=== PATIENT | female | born 1950 | race Caucasian/White ===

== ENCOUNTER → 2021-01-02 14:59 | Outpatient (BNVA) | payer MEDICARE, OTHER, SELFPAY | PROVIDERS: Family Provider Internal Medicine; PCP Internal Medicine; Visit Provider Registered Nurse Neonatal Intensive Care | DX: S52.512A Displaced fracture of left radial styloid process, initial encounter for closed fracture (principal); W19.XXXA Unspecified fall, initial encounter | CPT/HCPCS: 73110 ==

== ENCOUNTER 2021-01-04 15:31 | Outpatient (CLI) | payer MEDICARE, OTHER, SELFPAY | END 2021-01-04 15:32 | disposition home or self-care (01) | LOC: SPT 15:32 | PROVIDERS: Family Provider Internal Medicine; PCP Internal Medicine; Visit Provider Orthopaedic Surgery | DX: Z46.89 Encounter for fitting and adjustment of other specified devices (principal); S52.592D Other fractures of lower end of left radius, subsequent encounter for closed fracture with routine healing; X58.XXXD Exposure to other specified factors, subsequent encounter | CPT/HCPCS: 97760; L3982 ==

== ENCOUNTER → 2021-02-15 13:06 | Outpatient (BNVA) | payer MEDICARE, OTHER, SELFPAY | PROVIDERS: Family Provider Internal Medicine; PCP Internal Medicine; Visit Provider Orthopaedic Surgery | DX: S52.502A Unspecified fracture of the lower end of left radius, initial encounter for closed fracture (principal); X58.XXXA Exposure to other specified factors, initial encounter | CPT/HCPCS: 73110 ==

== ENCOUNTER → 2021-04-04 14:38 | Outpatient (BNVA) | payer MEDICARE, OTHER, SELFPAY | PROVIDERS: Family Provider Internal Medicine; PCP Internal Medicine; Referring Provider Pediatrics; Visit Provider Podiatrist Foot & Ankle Surgery | DX: M79.671 Pain in right foot (principal); M79.672 Pain in left foot; E11.42 Type 2 diabetes mellitus with diabetic polyneuropathy; L60.3 Nail dystrophy; M20.41 Other hammer toe(s) (acquired), right foot; M20.42 Other hammer toe(s) (acquired), left foot; M21.611 Bunion of right foot; M21.612 Bunion of left foot; M21.41 Flat foot [pes planus] (acquired), right foot; M21.42 Flat foot [pes planus] (acquired), left foot; M72.2 Plantar fascial fibromatosis; Z46.89 Encounter for fitting and adjustment of other specified devices; M20.40 Other hammer toe(s) (acquired), unspecified foot; M21.619 Bunion of unspecified foot; E11.9 Type 2 diabetes mellitus without complications | CPT/HCPCS: 73630; 97760; L4397 ==

== ENCOUNTER 2021-04-04 15:52 | Outpatient (CLI) | payer MEDICARE, OTHER, SELFPAY | END 2021-04-04 15:53 | disposition home or self-care (01) | LOC: SPT 15:53 | PROVIDERS: Family Provider Internal Medicine; PCP Internal Medicine; Visit Provider Podiatrist Foot & Ankle Surgery | DX: Z46.89 Encounter for fitting and adjustment of other specified devices (principal); L60.3 Nail dystrophy; M20.40 Other hammer toe(s) (acquired), unspecified foot; M21.619 Bunion of unspecified foot; M21.41 Flat foot [pes planus] (acquired), right foot; M21.42 Flat foot [pes planus] (acquired), left foot; M72.2 Plantar fascial fibromatosis; E11.9 Type 2 diabetes mellitus without complications | CPT/HCPCS: 97760; L4397 ==

== ENCOUNTER → 2021-12-05 10:32 | Outpatient (BNVA) | payer MEDICARE, OTHER, SELFPAY | PROVIDERS: Family Provider Internal Medicine; PCP Internal Medicine; Visit Provider Podiatrist Foot & Ankle Surgery | DX: L60.3 Nail dystrophy; M20.41 Other hammer toe(s) (acquired), right foot; M20.42 Other hammer toe(s) (acquired), left foot; M21.611 Bunion of right foot; M21.612 Bunion of left foot; M21.41 Flat foot [pes planus] (acquired), right foot; M21.42 Flat foot [pes planus] (acquired), left foot; M72.2 Plantar fascial fibromatosis; E11.42 Type 2 diabetes mellitus with diabetic polyneuropathy; Z79.84 Long term (current) use of oral hypoglycemic drugs | CPT/HCPCS: 99214 ==

== ENCOUNTER → 2022-03-27 09:53 | Outpatient (BNVA) | payer MEDICARE, OTHER, SELFPAY | PROVIDERS: Family Provider Internal Medicine; Visit Provider Podiatrist Foot & Ankle Surgery | DX: E11.8 Type 2 diabetes mellitus with unspecified complications (principal); E11.42 Type 2 diabetes mellitus with diabetic polyneuropathy; L60.3 Nail dystrophy; M21.41 Flat foot [pes planus] (acquired), right foot; M21.42 Flat foot [pes planus] (acquired), left foot; Z79.84 Long term (current) use of oral hypoglycemic drugs; M20.41 Other hammer toe(s) (acquired), right foot; M20.42 Other hammer toe(s) (acquired), left foot; M21.611 Bunion of right foot; M21.612 Bunion of left foot | CPT/HCPCS: 99213 ==

== ENCOUNTER → 2022-07-17 10:32 | Outpatient (BNVA) | payer MEDICARE, SELFPAY | PROVIDERS: Family Provider Internal Medicine; Visit Provider Podiatrist Foot & Ankle Surgery | DX: I73.9 Peripheral vascular disease, unspecified (principal); E11.42 Type 2 diabetes mellitus with diabetic polyneuropathy; Z86.718 Personal history of other venous thrombosis and embolism; L60.3 Nail dystrophy; M20.41 Other hammer toe(s) (acquired), right foot; M20.42 Other hammer toe(s) (acquired), left foot; M21.41 Flat foot [pes planus] (acquired), right foot; M21.42 Flat foot [pes planus] (acquired), left foot; M21.612 Bunion of left foot; M21.611 Bunion of right foot; Z79.84 Long term (current) use of oral hypoglycemic drugs | CPT/HCPCS: 11721; 99213 ==

== ENCOUNTER 2022-07-20 12:36 | Outpatient (CLI) | payer MEDICARE, SELFPAY ==
--- NOTE | 2022-07-20 13:00 | USCV_ITS ---
Mary White Age: 72 Gender: F : 1950 Exam Date: 07/20/2022 13:24 Ordering Phys: Carter Balderrama DPM Technologist: YAA Exam Location: [facility] – [place] Indication: Left calf pain HISTORY: Lower extremity pain. PROCEDURES: The venous duplex Doppler examination of both lower extremities was performed in the standard fashion. The following venous structures were evaluated: common femoral vein, profunda vein, proximal portion of the greater saphenous vein, superficial femoral vein, and the popliteal vein. In addition, the posterior tibial and peroneal trunk were evaluated. Serial compression, augmentation maneuvers, and spectral Doppler flow evaluation were performed. FINDINGS: No evidence of DVT seen in any vessel visualized at this time. CONCLUSIONS No evidence of right lower extremity DVT. No evidence of left lower extremity DVT. Adolfo Harrell MD (Electronically Signed) Final Date: 20 July 2022 18:14 S
== END 2022-07-20 12:37 | disposition home or self-care (01) ==
LOC: RAD 12:52
PROVIDERS: PCP Pediatrics; Visit Provider Podiatrist Foot & Ankle Surgery
DX: M79.662 Pain in left lower leg (principal)
CPT/HCPCS: 93970

== ENCOUNTER → 2022-07-25 10:50 | Outpatient (BNVA) | payer MEDICARE, SELFPAY | PROVIDERS: PCP Pediatrics; Visit Provider Orthopaedic Surgery | DX: M25.511 Pain in right shoulder (principal) | CPT/HCPCS: 73030; 99213 ==

== ENCOUNTER 2022-08-14 14:42 | Outpatient (CLI) | payer MEDICARE, SELFPAY ==
--- NOTE | 2022-08-14 15:15 | MR_ITS ---
WS: [id number] EXAMINATION: MR shoulder RT wo con* [id number] ORDER DATE: 08/14/2022 3:13 PM COMPARISON: None. HISTORY: pain CONTRAST: None. TECHNIQUE: Axial T2 STAR, coronal proton density fat sat, sagittal T2 fat sat, sagittal proton densit y fat sat, axial proton density fat sat, coronal T2 fat sat, and coronal T1 performed. After contrast , axial T1 fat sat, coronal T1 fat sat, and sagittal T1 fat sat were performed. FINDINGS: Moderate degenerative arthritis AC joint with mild edema. Mild downsloping acromion with slight subac romial spurring. Trace subacromial fluid. Tendinopathy distal supraspinatus. Tendinopathy distal infr aspinatus. Tiny insertional tear at the distal supraspinatus. Chronic thinning of the distal supraspi natus. Teres minor is normal. Normal distal subscapularis. Normal biceps tendon in the bicipital groove. Deg enerative fraying of the glenoid labrum. Cystic degenerative changes at the greater tuberosity. Bicep s labral anchor appears intact. MR/MR shoulder RT wo con* [id number] IMPRESSION: 1. Moderate degenerative arthritis AC joint with mild downsloping acromion. Mi ld narrowing of the subacromial space. 2. Tendinopathy distal supraspinatus and infraspinatus. 3. Tiny insertional tear at the distal supraspinatus with chronic thinning. 4. Rotator cuff is otherwise intact. 5. Biceps tendon appears intact within the bicipital groove. 6. Cystic degenerative changes at the greater tuberosity.
== END 2022-08-14 14:43 | disposition home or self-care (01) ==
PROVIDERS: PCP Pediatrics; Visit Provider Orthopaedic Surgery
DX: M75.101 Unspecified rotator cuff tear or rupture of right shoulder, not specified as traumatic (principal); M19.011 Primary osteoarthritis, right shoulder
CPT/HCPCS: 73221

== ENCOUNTER → 2022-08-15 09:02 | Outpatient (BNVA) | payer MEDICARE, SELFPAY | PROVIDERS: PCP Pediatrics; Visit Provider Orthopaedic Surgery | DX: M75.121 Complete rotator cuff tear or rupture of right shoulder, not specified as traumatic (principal); M19.011 Primary osteoarthritis, right shoulder | CPT/HCPCS: 99213 ==

== ENCOUNTER → 2022-10-16 09:46 | Outpatient (BNVA) | payer MEDICARE, SELFPAY | PROVIDERS: PCP Pediatrics; Visit Provider Podiatrist Foot & Ankle Surgery | DX: E11.8 Type 2 diabetes mellitus with unspecified complications (principal); L60.3 Nail dystrophy; L84 Corns and callosities; E11.42 Type 2 diabetes mellitus with diabetic polyneuropathy; M21.41 Flat foot [pes planus] (acquired), right foot; M21.42 Flat foot [pes planus] (acquired), left foot; I73.9 Peripheral vascular disease, unspecified; Z86.718 Personal history of other venous thrombosis and embolism; M20.42 Other hammer toe(s) (acquired), left foot; M20.41 Other hammer toe(s) (acquired), right foot; M21.612 Bunion of left foot; M21.611 Bunion of right foot | CPT/HCPCS: 11056; 11721 ==

== ENCOUNTER → 2022-12-18 12:44 | Outpatient (BNVA) | payer MEDICARE, SELFPAY | PROVIDERS: PCP Pediatrics; Visit Provider Student in an Organized Health Care Education/Training Program | DX: M75.121 Complete rotator cuff tear or rupture of right shoulder, not specified as traumatic; M19.011 Primary osteoarthritis, right shoulder | CPT/HCPCS: 99213 ==

== ENCOUNTER → 2023-01-08 08:08 | Outpatient (BNVA) | payer MEDICARE, SELFPAY | PROVIDERS: PCP Pediatrics; Visit Provider Podiatrist Foot & Ankle Surgery | DX: E11.42 Type 2 diabetes mellitus with diabetic polyneuropathy (principal); L60.3 Nail dystrophy; I73.9 Peripheral vascular disease, unspecified; L84 Corns and callosities; M48.062 Spinal stenosis, lumbar region with neurogenic claudication; R07.81 Pleurodynia; M54.16 Radiculopathy, lumbar region; Z79.84 Long term (current) use of oral hypoglycemic drugs | CPT/HCPCS: 11056; 11721; 72100; 99204 ==

== ENCOUNTER 2023-02-05 09:57 | Outpatient (CLI) | payer MEDICARE, SELFPAY ==
--- NOTE | 2023-02-05 | MR_ITS ---
WS: [id number] MRI LUMBAR SPINE NONCONTRAST TECHNIQUE: Sagittal T1, T2 and STIR imaging. Axial T1 and T2 imaging. CLINICAL INFORMATION: back pain COMPARISON: MRI 2014 FINDINGS: Mild lumbar curve. No acute compression. Prior laminectomy defects L3 and L4. L1-L2: Shallow central disc protrusion. Mild central canal stenosis. Moderate facet arthropathy. Fora men are patent. Central canal stenosis has progressed at this level. L2-L3: Mild disc bulging with moderate facet arthropathy and narrowing of the subarticular recess belinda aterally. Slightly progressed moderate central canal stenosis. Mild LEFT and no significant RIGHT for aminal narrowing. L3-L4: Mild disc bulging with impingement on the LEFT subarticular recess and traversing LEFT L4 nerv e root. Advanced facet arthropathy. Mild LEFT and no significant RIGHT foraminal narrowing. L4-L5: Mild disc bulging with mild central canal stenosis and slight impingement traversing L5 nerve roots bilaterally. Moderate to advanced facet arthropathy. RIGHT foraminal protrusion impinges the ex iting RIGHT L4 nerve root with moderate RIGHT foraminal narrowing. L5-S1: RIGHT subarticular protrusion impinges the traversing RIGHT S1 nerve root in the subarticular recess. Moderate facet arthropathy. Mild RIGHT foraminal narrowing. LEFT foramen is patent. Visualized pelvic bony structures: Normal. Paravertebral soft tissues: Normal. Small RIGHT adrenal adenoma. IMPRESSION: 1. Mild progressed central canal stenosis L1-2 and L4-5. Impingement traversing L5 nerve roots at L4 -5. 2. Moderate progressed Central canal stenosis L2-3 3. Subarticular protrusion L3-4 impinges the traversing LEFT L4 nerve root in the subarticular reces s. 4. RIGHT foraminal protrusion L4-5 impinges the exiting RIGHT L4 nerve root. 5. RIGHT subarticular protrusion L5-S1 impinges the RIGHT S1 nerve root progressed compared to previ ous.
== END 2023-02-05 09:58 | disposition home or self-care (01) ==
PROVIDERS: PCP Pediatrics; Visit Provider Orthopaedic Surgery
DX: M51.16 Intervertebral disc disorders with radiculopathy, lumbar region (principal); M48.061 Spinal stenosis, lumbar region without neurogenic claudication
CPT/HCPCS: 72148

== ENCOUNTER → 2023-02-07 10:03 | Outpatient (BNVA) | payer MEDICARE, SELFPAY | PROVIDERS: PCP Pediatrics; Visit Provider Physician Assistant | DX: M48.062 Spinal stenosis, lumbar region with neurogenic claudication (principal) | CPT/HCPCS: 99213 ==

== ENCOUNTER → 2023-03-08 09:57 | Outpatient (BNVA) | payer MEDICARE, SELFPAY | PROVIDERS: PCP Pediatrics; Visit Provider Student in an Organized Health Care Education/Training Program | DX: M75.121 Complete rotator cuff tear or rupture of right shoulder, not specified as traumatic (principal); M19.011 Primary osteoarthritis, right shoulder; Z01.818 Encounter for other preprocedural examination; E11.42 Type 2 diabetes mellitus with diabetic polyneuropathy; Z79.84 Long term (current) use of oral hypoglycemic drugs | CPT/HCPCS: 99214 ==

== ENCOUNTER 2023-03-27 12:15 | Outpatient (CLI) | payer MEDICARE, SELFPAY ==
[2023-03-27 12:56] LABS: Basophils % 0.4 %; Eosinophils # 0.1 10^3/uL (0.0-0.8); Lymphocytes # 1.7 10^3/uL (0.8-4.8); Lymphocytes % 21.2 %; Mean Corpuscular Hemoglobin 29.6 pg (27-33); Mean Corpuscular Volume 92.4 fl (85-98); Mean Platelet Volume 10.1 fL (7.4-10.4); Monocytes # 0.6 10^3/uL (0.2-0.9); Monocytes % 8.2 %; Neutrophils # 5.38 10^3/uL (1.8-7.7); Neutrophils % 69.1 %; Nucleated Red Blood Cells % 0 %; Platelet Count 248 10^3/cmm (157-399); Red Blood Count 4.33 10^6/uL (3.85-5.65); White Blood Count 7.79 10^3/uL (3.29-11.43)
[2023-03-27 13:14] LABS: Alanine Aminotransferase 17 U/L (0-33); Albumin Level 3.9 g/dL (3.5-5.2); Alkaline Phosphatase 103 U/L (35-105); Aspartate Amino Transferase 16 U/L (0-32); Blood Urea Nitrogen 13 mg/dL (8-23); Calcium 9.5 mg/dL (8.5-10.5); Carbon Dioxide 29 mmol/L (22-29); Chloride 99 mmol/L (98-107); Glucose 163 mg/dL (65-115); Osmolality Calculated 288 mOsm/kg (285-295); Sodium 137 mmol/L (136-145); Total Bilirubin 0.3 mg/dL (0.15-1.2); Total Protein 6.9 g/dL (6.6-8.7)
[2023-03-27 13:25] LABS: Add Urine Microscopic? YES; Bilirubin Urine Neg (Negative); Blood Urine Neg (Negative); Glucose Urine UA Norm (Normal); Ketones Urine Negative (Negative); Leukocyte Esterase Urine Negative (Negative); Nitrate Urine Negative (Negative); Protein Urine Neg (Negative); RBC Urine 0-4 /hpf (0-2); Urine Appearance SL Hazy (CLEAR); Urine Color Yellow (Yellow); Urobilinogen Urine Neg (Negative); WBC Urine 0-4 /hpf (0-5); pH Urine 8 (5-7)
[2023-03-27 13:26] LABS: Add Urine Culture? No; Bacteria Urine 2+ /hpf
[2023-03-27 13:56] LABS: Estmated Average Glucose 154
== END 2023-03-27 12:16 | disposition home or self-care (01) ==
LOC: LAB 12:16
PROVIDERS: PCP Pediatrics; Visit Provider Student in an Organized Health Care Education/Training Program
DX: Z01.818 Encounter for other preprocedural examination (principal); E11.42 Type 2 diabetes mellitus with diabetic polyneuropathy
CPT/HCPCS: 36415; 80053; 81001; 83036; 85025

== ENCOUNTER → 2023-04-03 09:54 | Outpatient (BNVA) | payer MEDICARE, SELFPAY | PROVIDERS: PCP Pediatrics; Visit Provider Family Medicine | DX: Z01.818 Encounter for other preprocedural examination (principal) | CPT/HCPCS: 81003 ==

== ENCOUNTER → 2023-04-08 14:58 | Outpatient (BNVA) | payer MEDICARE, SELFPAY | PROVIDERS: PCP Pediatrics; Visit Provider Family Medicine | DX: Z01.818 Encounter for other preprocedural examination (principal) | CPT/HCPCS: 81003 ==

== ENCOUNTER 2023-04-10 11:49 | Day surgery (SDC) | payer MEDICARE, SELFPAY ==
[2023-04-10] VITALS (12 sets, daily range): BP systolic 119–174; BP diastolic 66–93; PULSE 66–92; RESP 16–23; TEMP 36.1–36.2; O2SAT 92–100; BMI 38.6
[2023-04-10] MEDS: acetaminophen 1,000 MG/100 ML PIGGYBACK 400 MG IV (12:37)
[2023-04-10] MEDS: sodium chloride 0.9% 1,000 ML 30 ML IV (12:37)
--- NOTE | 2023-04-10 12:37 | P.HP_ITS ---
Same Day Surgery H&P Indication for Procedure/HPI DATE OF PROCEDURE: April 10, 2023 CHIEF COMPLAINT/INDICATIONFOR SURGICAL PROCEDURE: Right shoulder AC joint arthritis rotator cuff tear and subacromial impingement PREOP DIAGNOSIS: Right shoulder AC joint arthritis rotator cuff tear and subacromial impinge PLANNED PROCEDURE: Operation Date: 04/10/23 13:35 Proposed Procedures p Right Shoulder Arthroscopy(Right) - Cain Ashlee, DO s RightAC Joint Resection(Right) - Cain Ashlee, DO s Subacromial Decompression(Right) - Cain Ashlee, DO s Right Rotator Cuff Repair - Arthroscopy(Right) - Cain Ashlee, DO Medications/Allergies* Home Medications Medication Instructions Recorded Confirmed Type fexofenadine 60 mg tablet 60 mg PO DAILY 01/02/21 04/10/23 History hydrochlorothiazide 12.5 mg tablet 12.5 mg PO DAILY 01/02/21 04/09/23 History levothyroxine 112 mcg capsule 112 mcg PO DAILY 01/02/21 04/10/23 History lisinopril 10 mg tablet 10 mg PO DAILY 01/02/21 04/09/23 History metformin 500 mg tablet 500 mg PO DAILY 01/02/21 04/09/23 History atorvastatin 10 mg tablet 10 mg PO DAILY 04/03/23 04/09/23 History Allergies/Adverse Reactions Allergy/AdvReac Type Severity Reaction Status Date / Time adhesive tape Allergy rash Verified 04/09/23 12:53 swelling Sulfa (Sulfonamide Allergy nausea Verified 04/09/23 12:53 Antibiotics) Pertinent History/Comorbid Conditions* Social History Smoking and tobacco/nicotine status: never used tobacco/nicotine Substance/Drug Use: never Pertinent Exam Findings alert, oriented x 3, operative site marked and procedure specific exam findings Right shoulder ROM: Full range of motion with pain on end range of motion TTP over AC joint, anterior shoulder over bicipital groove as well as lateral shoulder Pain with Jobes and weakness to the right shoulder Recommendations Surgery/Procedure today Other Plans: Proceed the OR today with right shoulder diagnostic and surgical arthroscopy with AC joint resection, subacromial decompression, rotator cuff repair. Patient understands he is not to procedure with risk benefits complication alternatives of surgery and elects proceed with surgical intervention. All questions answered. Coding Level of Care Code Acute Code for [facility]
[2023-04-10] MEDS: ketorolac 30 mg/mL INJ IVP (12:39)
[2023-04-10] MEDS: scopolamine 1.5 Patch 1 PATCH TRANSDERMA (12:39)
--- NOTE | 2023-04-10 13:26 | SUR.PREOP ---
1321-time out was performed at bedside in Pre-op for block to right shoulder. Patient tolerated well.
--- NOTE | 2023-04-10 13:27 | P.ANESASSM_ITS ---
Pre-Anesthetic Assessment Height/Weight: Height 1.6 m Weight 98.883 kg Temp Pulse Resp BP Pulse Ox O2 Del Method 97.2 F L 67 17 174/93 99 Room Air 04/10/23 12:13 04/10/23 12:13 04/10/23 12:13 04/10/23 12:13 04/10/23 12:13 04/10/23 12:13 Preop Diagnosis: Right shoulder AC joint arthritis rotator cuff tear and subacromial impinge Operation Date: 04/10/23 13:35 Proposed Procedures p Right Shoulder Arthroscopy(Right) - Cain Roger Mills, DO s RightAC Joint Resection(Right) - Cain Ahslee, DO s Subacromial Decompression(Right) - Cain Roger Mills, DO s Right Rotator Cuff Repair - Arthroscopy(Right) - Cain Ashlee, DO Familial anesthetic complications: None Was Beta Terell taken within 24 hours: N/A Was Clonidine taken within 24 hours: N/A Last intake: Intake Last Liquid Date 04/09/23 Last Liquid Time 23:00 Last Solid Date 04/09/23 Last Solid Time 18:30 Social No alcohol and No tobacco Exam alert, oriented x 3, clear to auscultation bilaterally and regular rate & rhythm Airway Mallampati: Class I Dentition: false Pulmonary Asthma and Sleep Apnea CV/HEM Hypertension patient states she has a condition where her body makes too much aspirin and she gets 'funny red spots on her arms. Patient then displayed petechiae over the flexural surfaces of her forearms. States she has had no other symptoms other than the petechiae and hasn't noticed any excess bleeding and nor tendency towards clotting and was never placed on any kind of medication for the condition, though she states the spots improved after they took her off the aspirin. when she was on the aspirin her skin turned thin and discolored. Informed surgeon of patietn's condition regarding possibility of excess bleeding/surgical hemarthrosis, but states surgery is minimally invasive. Metabolic Diabetes Mellitus Anesthetic Plan ASA status: 3 Anesthesia: General and Regional (specify below) Other: Block is superficial and easily compressible in instance of unexpected excess bleeding Risk of > 500 ml blood loss (7ml/kg in children): No Medications/Allergies Home Medications Medication Instructions Recorded Confirmed Last Taken Type fexofenadine 60 mg tablet 60 mg PO DAILY 01/02/21 04/10/2304/09/23 History hydrochlorothiazide 12.5 mg tablet 12.5 mg PO DAILY 01/02/21 04/09/23 04/09/23 History levothyroxine 112 mcg capsule 112 mcg PO DAILY 01/02/21 04/10/23 04/10/23 History lisinopril 10 mg tablet 10 mg PO DAILY 01/02/21 04/09/23 04/09/23 History metformin 500 mg tablet 500 mg PO DAILY 01/02/21 04/09/23 04/08/23 History Fast Form Cock Up Splint #1 ea 01/04/21 03/08/23 Unknown Rx Diabetic Shoes #1 ea 04/04/21 03/08/23 Unknown Rx Night Splint to the left #1 ea 04/04/21 03/08/23 Unknown Rx Diabetic SHoes with 3 sets of #1 ea 12/05/21 03/08/23 Unknown Rx insoles Diabetic Shoes with 3 pairs of #1 ea 08/15/22 03/08/23 Unknown Rx inserts atorvastatin 10 mg tablet 10 mg PO DAILY 04/03/23 04/09/23 04/08/23 History Allergies Allergy/AdvReac Type Severity Reaction Status Date / Time adhesive tape Allergy rash Verified 04/09/23 12:53 swelling Sulfa (Sulfonamide Allergy nausea Verified 04/09/23 12:53 Antibiotics) Current Medications Generic Name Dose Route Start Last Admin Trade Name Freq PRN Reason Stop Dose Admin Sodium Chloride 1,000 mls @ 30 mls/hr 04/10/23 12:00 04/10/23 12:37 Sodium Chloride 0.9% IV 04/11/23 11:59 30 mls/hr .Q24H DAVON Administration PFSH Anesthesia Social History Smoking and tobacco/nicotine status: never used tobacco/nicotine Substance/Drug Use: never Data Anesthesia Cardiac Studies: No Data to Display
--- NOTE | 2023-04-10 13:33 | ANES.PROC ---
Anesthesia Procedures Procedure/Date: 04/10/23 Nerve Block ^: Nerve Block 1: Main Anesthesia: general anesthesia Time Out Performed: Yes Consent: requested by attending/covering physician, from patient, from other, risks and benefits reviewed and patient agrees to proceed Nerve block location: interscalene (R) Nerve block position: supine Anesthetic Used: ropivicaine 0.5% (20 ml) and with decadron (4 mg) Ultrasound used to: recognize landmarks, visualize and ID brachial plexus, in supraclavicular region and visualize and ID interscalene groove Nerve Stimulator Used?: No Interscalene/Femoral BLK: 2 stimuplex 22 g needle used for position and inplane approach, visualize local anesthetic spread and no vascular puncture identified Injection: neg aspiration of heme Patient Tolerated Procedure: well Complications: none
[2023-04-10] MEDS: ceFAZolin 2,000 MG in sodium chloride 0.9% (plus) 50 ML 100 MG IV (14:10)
[2023-04-10] MEDS: EPINEPHrine 1 mg/mL INJ 2 MG XX (15:30)
--- NOTE | 2023-04-10 15:53 | P.BOP_ITS ---
Date of Procedure: 04/10/2023 Surgeon: Cain Rosado DO Ivf Embryologist(s): Clem Rosado PA-C Procedure(s) performed: Right shoulder diagnostic and surgical arthroscopy with arthroscopic rotator cuff repair Right shoulder diagnostic and surgical arthroscopy with biceps tenotomy Right shoulder diagnostic and surgical arthroscopy with labral debridement Right shoulder diagnostic and surgical arthroscopy with AC joint resection (distal clavicle excision) Right shoulder diagnostic and surgical arthroscopy with subacromial decompression (acromioplasty and bursectomy) Findings of the procedure(s): Patient was found to have biceps tendinitis, AC joint arthritis and subacromial impingement and labral tearing and has rotator cuff tear, procedure went as planned without complications. Estimated blood loss: 5mL Specimen(s) removed: None Post-operative diagnosis: Biceps tendinitis/tear and labral tearing, AC joint arthritis, subacromial impingement, AC joint arthritis, rotator cuff tear
--- NOTE | 2023-04-10 15:56 | PM.OP ---
Operative Report Date of procedure: April 10, 2023 Surgeon: Cain Rosado DO Freight Adjuster: Clem Rosado PA-C: PA was necessary for assistance in this case with arm positioning to execute the procedure, retraction and protection of neurovascular structures as well as to assist rotator cuff repair and assist with wound closure and dressing application. Procedure: Pre-op diagnosis: Right shoulder rotator cuff tear AC joint arthritis Subacromial impingement. Post-op diagnosis: Right?shoulder?labral tear Right?shoulder?biceps tendon tear Right?shoulder?rotator cuff tear Right?shoulder?AC joint arthritis Right?shoulder?subacromial bursitis/impingement Procedure done: Right?shoulder?diagnostic and surgical arthroscopy with arthroscopic rotator cuff repair Right?shoulder?diagnostic and surgical arthroscopy biceps tenotomy Right?shoulder?diagnostic and surgical arthroscopy labral debridement Right?shoulder?diagnostic and surgical arthroscopy acromioclavicular joint resection Right?shoulder?diagnostic and surgical arthroscopy subacromial decompression (acromioplasty and bursectomy) Surgeon: Cain Rosado DO Estimated blood loss: 5mL IV fluids: See anesthesia record Implants: Arthrex 4.75 swivel lock Arthrex scorpion and suture tape Complications: None Condition: stable Disposition: same day Brief History: Patient been seen and worked up in the outpatient setting for right?shoulder?pain.? Pt had an MRI which showed findings below.? Patient's failed conservative treatment and has weakness.? We talked about treatment options far as nonoperative and operative intervention..? We talked about risk benefits complication alternatives surgical nonsurgical treatment options.? Understanding risk of surgery pt agrees to proceed with surgical intervention.? All questions have been answered at this time.? Patient elects proceed with surgery and consent obtained in office. MR/MR shoulder RT wo con* [id number] IMPRESSION: 1. Moderate degenerative arthritis AC joint with mild downsloping acromion. Mild narrowing of the subacromial space. 2. Tendinopathy distal supraspinatus and infraspinatus. 3. Tiny insertional tear at the distal supraspinatus with chronic thinning. 4. Rotator cuff is otherwise intact. 5. Biceps tendon appears intact within the bicipital groove. 6. Cystic degenerative changes at the greater tuberosity. Procedure: Patient seen evaluated in the preoperative holding area.? Consent reviewed and signed with patient.? Once again reviewed patient's MRI results as well as? planned surgical intervention.? Correct extremity marked.? Patient seen evaluated by anesthesia department received regional anesthesia.? Once ready for surgery was taken back to the operative suite.? Patient then subsequently underwent anesthesia per the anesthesia department was transported onto the OR table.? Patient was then placed into a lateral decubitus position with a beanbag and was appropriately secured to the bed.? All bony prominences well-padded.? Patient then had the right upper extremity was then prepped and draped in standard orthopedic fashion.? Patient received appropriate preoperative antibiotics.? Final timeout performed. The right upper extremity was then held in hanging from traction utilizing sterile technique.? Next started with standard diagnostic and surgical arthroscopy with posterior portal position introduced arthroscope into the glenohumeral joint.? Visualized the glenohumeral joint I then introduced a spinal needle within the rotator cuff interval to confirm appropriate anterior portal placement.? Once this was confirmed I then made my small incision and then introduced my arthroscopic shaver into the glenohumeral joint.? After thorough debridement was clearly evident patient had a significant erythema as well as positive liftoff sign of the biceps anchor and biceps tendon tear as it was pulled within the joint.? Decision at this time was made to perform a biceps tenotomy.? Introduced a thermal wand and a biceps tenotomy was performed to completion With appropriate release.? Next I evaluated the subscapularis tendon which was intact and no evidence of tear. ?Next there was significant labral tearing at biceps anchor and circumferential.? ? I then subsequently utilized a a arthroscopic shaver and thermal wand to perform a labral debridement.? This point time I then visualized the glenohumeral joint.? The glenohumeral joint was found to have grade 1-2? chondromalacia throughout.? Infrapatellar pouch was free of loose bodies from viewing the posterior portal.? Next a visualized the rotator cuff superiorly and there was found to be a small undersurface tearing of the supraspinatus tendon.? I utilized a spinal needle to russell this location.?? This completed my work within the glenohumeral joint all fluid was suctioned free of the joint.? ?Next I reintroduced the arthroscope posteriorly.? And went to the subacromial space.? I established my lateral working portal at the site of which my spinal needle was marking of the rotator cuff tear.? Thermal wand was then introduced laterally and then I subsequently performed extensive bursectomy of the subacromial space.? Patient had a large anterior bone spur.? At this point time I proceeded with my AC joint resection thermal wand was used and track to the anterior edge of the acromion and then tracked all the way to the AC joint.? Once identified the AC joint this was very arthritic in nature.? Thermal wand was placed anteriorly to establish appropriate plane for AC joint resection.? Once appropriate margins and anterior inferior and anterior capsule was released I then introduced arthroscopic shaver and a bur and performed AC joint resection of both the acromion to cope plane at the AC joint and a distal clavicle resection was then performed totaling 1 cm in size and was confirmed.? This completed my AC joint resection and I then introduced the arthroscopic shaver laterally while continuing to view posteriorly.? I then performed an acromioplasty to complete my subacromial decompression prior to fixing the rotator cuff tear.? Next the arthroscopic shaver was then used previous spinal needle spot that is marked the small hole in the rotator cuff this was consistent with a small full-thickness tear.? Given the small size this did not need a medial and lateral row configuration as result my plan was for a horizontal mattress stitch with a single lateral row anchor.? As result I loaded and Arthrex scorpion with fiber tape and subsequently.? A horizontal mattress purchase appropriately spaced to the small tear of the supraspinatus tendon.? At this point in time and then introduced a shaver to debride the rotator cuff footprint and decorticate the footprint in preparation for repair, next I marked by swivel lock position.? Fiber tape was then loaded into a 475 swivel lock I then subsequently punched and then subsequently placement 4.75 swivel lock while maintaining appropriate tension and repair of rotator cuff and this was advanced with excellent fixation I then had a final confirmation of appropriate repair of the supraspinatus rotator cuff tendon tear.? Sutures were then cut with an arthroscopic suture cutter and subsequently evaluated the rotator cuff repair.? Repair was found to be satisfactory?shoulder?was taken through range of motion and the repair moved as a unit with no evidence of loss of fixation. ?I then switched the arthroscope to the lateral portal to confirm this tension-free repair.? I took the?shoulder?through range of motion and the rotator cuff repair was stable and moved as a unit. ?Next I then introduced the arthroscopic shaver posteriorly to complete my subacromial decompression appropriate complaining all the way up to the lateral edge of the acromion.? This completed the surgery.? All fluid was suctioned from the?shoulder.? All instruments were removed.? The lateral incision was then closed with nylon stitches.? As well as the portal sites closed with portal nylon stitches.? Xeroform 4 x 4's ABD and tape was then applied to the right?shoulder?and was placed into a?shoulder?abduction pillow sling for rotator cuff repair.? Patient was then awakened from anesthesia and then taken back to PACU in stable condition.? Patient tolerated procedure without any issues. Disposition: Patient taken back in stable condition recovering well.? Dressings on in place clean dry and intact.? Will be nonweightbearing to the right upper extremity.? Follow rotator cuff repair protocol.? Patient to follow-up with me in the office in 2 weeks.? Patient will receive appropriate discharge instruction as well as pain medication postoperatively.? All questions answered.? We will contact the office for any questions or concerns.
--- NOTE | 2023-04-10 16:04 | PM.PACU ---
PACU note Narrative: Patient is a 72-year-old female just underwent a right shoulder surgical arthroscopy. Patient transferred to PACU in stable condition. Pain is well controlled. shoulder Dressing on , dry and in place. Patient's operative arm is in a shoulder immobilizer. Patient is awake and alert and able to respond to my questions accordingly. Patient's fingers are warm with good perfusion. Normal cap refill under 2 seconds. Unable to assess further range of motion in arm due to sling. Unable to assess sensation and motor due to residual localized anesthetic. Exam: awake Disposition: discharged
[2023-04-10] MEDS: ondansetron 2 mg/ML SDV 2 mL 4 MG IVP ×2 (16:15→16:47)
[2023-04-10] MEDS: metoclopramide 5 mg/mL SDV 2 mL 10 MG IVP (17:31)
[2023-04-10 23:11] LABS: Glucose Point of Care 135 mg/dL (70-110)
== END 2023-04-10 16:20 | disposition home or self-care (01) ==
PROVIDERS: PCP Pediatrics; Visit Provider Student in an Organized Health Care Education/Training Program
PROC: (CPT 29805; principal; 2023-04-10 13:25)
PROC: 0RSG0ZZ Reposition Right Acromioclavicular Joint, Open Approach (ICD-10-PCS; CPT 29824; 2023-04-10 13:25)
PROC: (CPT 29826; 2023-04-10 13:25)
PROC: (CPT 29827; 2023-04-10 13:25)
PROC: (CPT 24310; 2023-04-10 13:25)
DX: S43.401A Unspecified sprain of right shoulder joint, initial encounter (principal); S46.211A Strain of muscle, fascia and tendon of other parts of biceps, right arm, initial encounter; X58.XXXA Exposure to other specified factors, initial encounter; M75.101 Unspecified rotator cuff tear or rupture of right shoulder, not specified as traumatic; M19.011 Primary osteoarthritis, right shoulder; M25.811 Other specified joint disorders, right shoulder; J45.909 Unspecified asthma, uncomplicated; G47.30 Sleep apnea, unspecified; E11.9 Type 2 diabetes mellitus without complications; Z79.84 Long term (current) use of oral hypoglycemic drugs; I10 Essential (primary) hypertension
CPT/HCPCS: 29824; 29826; 29827; 29828; 36415; 36416; 82962; C1713; J0131; J0171; J0690; J1100; J1885; J2405; J2704; J2710; J2765; J2795; J3010; J3490; J7030

== ENCOUNTER → 2023-04-26 10:07 | Outpatient (BNVA) | payer MEDICARE, SELFPAY | PROVIDERS: PCP Pediatrics; Visit Provider Student in an Organized Health Care Education/Training Program | DX: Z98.890 Other specified postprocedural states (principal) | CPT/HCPCS: 99024 ==

== ENCOUNTER → 2023-05-14 09:04 | Outpatient (BNVA) | payer MEDICARE, SELFPAY | PROVIDERS: PCP Pediatrics; Visit Provider Podiatrist Foot & Ankle Surgery | DX: E11.42 Type 2 diabetes mellitus with diabetic polyneuropathy (principal); L84 Corns and callosities; L60.3 Nail dystrophy; I73.9 Peripheral vascular disease, unspecified; Z79.84 Long term (current) use of oral hypoglycemic drugs | CPT/HCPCS: 11056; 11721 ==

== ENCOUNTER → 2023-05-28 07:46 | Outpatient (BNVA) | payer MEDICARE, SELFPAY | PROVIDERS: PCP Pediatrics; Visit Provider Physician Assistant | DX: Z98.890 Other specified postprocedural states (principal) | CPT/HCPCS: 99024 ==

== ENCOUNTER → 2023-07-23 12:52 | Outpatient (BNVA) | payer MEDICARE, SELFPAY | PROVIDERS: PCP Pediatrics; Visit Provider Physician Assistant | DX: Z98.890 Other specified postprocedural states (principal) | CPT/HCPCS: 99213 ==

== ENCOUNTER → 2023-11-20 12:36 | Outpatient (BNVA) | payer MEDICARE, SELFPAY | PROVIDERS: PCP Pediatrics; Visit Provider Podiatrist Foot & Ankle Surgery | DX: E11.42 Type 2 diabetes mellitus with diabetic polyneuropathy (principal); L84 Corns and callosities; L60.3 Nail dystrophy; I73.9 Peripheral vascular disease, unspecified; Z79.84 Long term (current) use of oral hypoglycemic drugs | CPT/HCPCS: 11056; 11721 ==

== ENCOUNTER → 2024-04-15 13:00 | Outpatient (BNVA) | payer MEDICARE, SELFPAY | PROVIDERS: PCP Pediatrics; Visit Provider Podiatrist Foot & Ankle Surgery | DX: E11.42 Type 2 diabetes mellitus with diabetic polyneuropathy (principal); L84 Corns and callosities; L60.3 Nail dystrophy; I73.9 Peripheral vascular disease, unspecified; Z79.84 Long term (current) use of oral hypoglycemic drugs | CPT/HCPCS: 11056; 11721 ==